=== PATIENT | female | born 1965 | race Caucasian/White ===

== ENCOUNTER 2017-08-03 07:19 | Outpatient (CLI) | payer OTHER ==
[~2017-08-03 07:19] MED LIST: ALBUTEROL2.5 MG/3 M IH; Atarax PO; BENADRYL50 MG PO; CLEOCIN HCL300 MG PO; FLONASE16 GM NASAL; FLONASE16 GM NS; GILTUSS TR TAB1 EACH PO; LEVOTHYROXINE PO; LIPITOR20 MG; LISINOPRIL10 MG; LISINOPRIL10 MG PO; MEDROL4 MG PO; PLAVIX75 MG; PROVENTIL HFA6.7 GM IH; PROVENTIL3 ML/2.5 M IH; Proventil 0.083% 2.5MG/3ML AMPUL.NEB. IH; SINGULAIR10 MG PO; SYNTHROID 25 MCG PO; TAGAMET800 MG PO; ULTRACET PO; ZESTRIL10 M1 PO; ZITHROMAX500 MG PO; ZOCOR20 MG PO; ZYRTEC10 MG PO; Zestril PO; Zyrtec 5mg/5ml PO
== END 2017-08-03 07:24 | disposition home or self-care (01) ==
LOC: LAB 07:19
DX: N92.0 Excessive and frequent menstruation with regular cycle (principal); N91.4 Secondary oligomenorrhea

== ENCOUNTER → 2017-10-15 | Outpatient (CLI) | payer OTHER | END | disposition home or self-care (01) | LOC: PPHC 15:50 | DX: Z76.0 Encounter for issue of repeat prescription (principal); Z00.8 Encounter for other general examination; Z00.00 Encounter for general adult medical examination without abnormal findings ==

== ENCOUNTER → 2017-10-20 06:53 | Outpatient (CLI) | payer OTHER | END | disposition home or self-care (01) | LOC: LAB 06:53 | DX: I10 Essential (primary) hypertension (principal); E78.5 Hyperlipidemia, unspecified; E03.9 Hypothyroidism, unspecified ==

== ENCOUNTER → 2017-11-09 | Outpatient (CLI) | payer OTHER | END | disposition home or self-care (01) | LOC: PPHC 15:40 | DX: Z00.8 Encounter for other general examination (principal) ==

== ENCOUNTER 2018-01-17 07:10 | Outpatient (CLI) | payer OTHER | END 2018-01-17 07:19 | disposition home or self-care (01) | LOC: LAB 07:10 | DX: E89.0 Postprocedural hypothyroidism (principal) ==

== ENCOUNTER 2018-02-23 10:07 | Outpatient (CLI) | payer OTHER | END 2018-02-23 10:10 | disposition home or self-care (01) | LOC: LAB 10:07 | DX: Z11.3 Encounter for screening for infections with a predominantly sexual mode of transmission (principal) ==

== ENCOUNTER → 2018-05-20 07:12 | Outpatient (CLI) | payer OTHER | END | disposition home or self-care (01) | LOC: LAB 07:12 | DX: E11.65 Type 2 diabetes mellitus with hyperglycemia (principal); E78.2 Mixed hyperlipidemia; E89.0 Postprocedural hypothyroidism ==

== ENCOUNTER 2018-06-29 12:01 | Emergency (ER) | payer OTHER ==
[~2018-06-29] VITALS: Ht 154.9 cm; Wt 68.0 kg
== END 2018-06-29 16:16 | disposition home or self-care (01) ==
LOC: ER 12:01
DX: R51 Headache (principal); R42 Dizziness and giddiness

== ENCOUNTER 2018-12-13 07:25 | Outpatient (CLI) | payer OTHER | END 2018-12-13 09:40 | disposition home or self-care (01) | LOC: LAB 07:25 | DX: E03.8 Other specified hypothyroidism (principal); R42 Dizziness and giddiness; I10 Essential (primary) hypertension; E78.49 Other hyperlipidemia ==

== ENCOUNTER 2019-02-23 12:11 | Outpatient (CLI) | payer OTHER | END 2019-02-23 14:50 | disposition home or self-care (01) | LOC: MAMO-SONO 12:11 | DX: N60.12 Diffuse cystic mastopathy of left breast (principal); N60.11 Diffuse cystic mastopathy of right breast ==

== ENCOUNTER 2019-03-08 11:29 | Outpatient (CLI) | payer OTHER | END 2019-03-08 11:35 | disposition home or self-care (01) | LOC: LAB 11:29 | DX: J11.1 Influenza due to unidentified influenza virus with other respiratory manifestations (principal); J11.81 Influenza due to unidentified influenza virus with encephalopathy ==

== ENCOUNTER 2019-03-31 07:05 | Outpatient (CLI) | payer OTHER | END 2019-03-31 07:10 | disposition home or self-care (01) | LOC: LAB 07:05 | DX: E78.49 Other hyperlipidemia (principal); N39.0 Urinary tract infection, site not specified ==

== ENCOUNTER → 2019-04-28 07:22 | Outpatient (CLI) | payer OTHER | END | disposition home or self-care (01) | LOC: LAB 07:22 | DX: M35.00 Sjogren syndrome, unspecified (principal) ==

== ENCOUNTER 2019-05-04 14:32 | Outpatient (CLI) | payer OTHER | END 2019-05-04 14:38 | disposition home or self-care (01) | LOC: LAB 14:32 | DX: R05 Cough (principal); J11.1 Influenza due to unidentified influenza virus with other respiratory manifestations ==

== ENCOUNTER 2019-05-17 12:52 | Outpatient (CLI) | payer OTHER | END 2019-05-17 13:00 | disposition home or self-care (01) | LOC: SONOGRAMA 12:52 | DX: E03.8 Other specified hypothyroidism (principal) ==

== ENCOUNTER 2019-09-06 07:41 | Outpatient (CLI) | payer OTHER | END 2019-09-06 07:47 | disposition home or self-care (01) | LOC: LAB 07:41 | DX: M33.22 Polymyositis with myopathy (principal); M06.09 Rheumatoid arthritis without rheumatoid factor, multiple sites; R76.0 Raised antibody titer; R74.0 Nonspecific elevation of levels of transaminase and lactic acid dehydrogenase [LDH]; E78.49 Other hyperlipidemia ==

== ENCOUNTER 2019-09-25 08:00 | Outpatient (CLI) | payer OTHER | END 2019-09-25 09:20 | disposition home or self-care (01) | LOC: NUCLEAR 08:00 | DX: M46.1 Sacroiliitis, not elsewhere classified (principal); M06.4 Inflammatory polyarthropathy | CPT/HCPCS: 78315; A9503 ==

== ENCOUNTER 2019-09-30 11:17 | Outpatient (CLI) | payer OTHER | END 2019-09-30 11:31 | disposition home or self-care (01) | LOC: RAD 11:17 | DX: M15.8 Other polyosteoarthritis (principal) ==

== ENCOUNTER → 2019-11-09 13:12 | Outpatient (CLI) | payer OTHER | END | disposition home or self-care (01) | LOC: LAB 13:12 | DX: J11.1 Influenza due to unidentified influenza virus with other respiratory manifestations (principal) ==

== ENCOUNTER 2020-01-13 11:43 | Outpatient (CLI) | payer OTHER | END 2020-01-13 14:19 | disposition home or self-care (01) | LOC: LAB 11:43 | DX: M54.2 Cervicalgia (principal); M54.5 Low back pain; E55.9 Vitamin D deficiency, unspecified ==

== ENCOUNTER 2020-02-28 14:20 | Outpatient (CLI) | payer OTHER | END 2020-02-28 14:24 | disposition home or self-care (01) | LOC: CERTIFICAD 14:20 | PROVIDERS: ATTEND General Practice | DX: Z11.1 Encounter for screening for respiratory tuberculosis (principal) ==

== ENCOUNTER → 2020-05-18 08:17 | Outpatient (CLI) | payer OTHER | END | disposition home or self-care (01) | LOC: LAB 08:17 | DX: J45.30 Mild persistent asthma, uncomplicated (principal); J30.89 Other allergic rhinitis ==

== ENCOUNTER 2020-07-05 15:22 | Outpatient (CLI) | payer OTHER | END 2020-07-05 15:24 | disposition home or self-care (01) | LOC: SONOGRAMA 15:22 | PROVIDERS: ATTEND Obstetrics & Gynecology Gynecology | DX: Q51.818 Other congenital malformations of uterus (principal); R10.2 Pelvic and perineal pain; D25.9 Leiomyoma of uterus, unspecified ==

== ENCOUNTER 2020-07-09 07:07 | Outpatient (CLI) | payer OTHER | END 2020-07-09 07:28 | disposition home or self-care (01) | LOC: LAB 07:07 | PROVIDERS: ATTEND Internal Medicine | DX: E03.8 Other specified hypothyroidism (principal); E55.9 Vitamin D deficiency, unspecified; E11.65 Type 2 diabetes mellitus with hyperglycemia; E78.49 Other hyperlipidemia; I10 Essential (primary) hypertension; N39.0 Urinary tract infection, site not specified ==

== ENCOUNTER 2020-08-28 09:11 | Emergency (ER) | payer OTHER ==
[~2020-08-28] VITALS: Ht 160 cm; Wt 63.0 kg
[2020-08-28] MEDS ORDERED: GEMFIBROZIL600 MG (09:38)
[2020-08-28] MEDS ORDERED: MECLIZINE HCL25 MG PO (13:55)
== END 2020-08-28 14:05 | disposition home or self-care (01) ==
LOC: ER 09:11
DX: R42 Dizziness and giddiness (principal); Z03.818 Encounter for observation for suspected exposure to other biological agents ruled out

== ENCOUNTER 2020-09-26 07:44 | Outpatient (CLI) | payer OTHER | END 2020-09-26 07:51 | disposition home or self-care (01) | LOC: LAB 07:44 | PROVIDERS: ATTEND Internal Medicine | DX: E78.5 Hyperlipidemia, unspecified (principal); E03.8 Other specified hypothyroidism ==

== ENCOUNTER → 2020-09-26 | Outpatient (CLI) | payer OTHER ==
[~2020-09-26] MED LIST changes: +GEMFIBROZIL600 MG; +MECLIZINE HCL25 MG PO
== END | disposition home or self-care (01) ==
LOC: SONOGRAMA 15:12
PROVIDERS: ATTEND Internal Medicine
DX: E04.2 Nontoxic multinodular goiter (principal)

== ENCOUNTER 2020-11-19 07:45 | Outpatient (CLI) | payer OTHER | END 2020-11-19 08:11 | disposition home or self-care (01) | LOC: NUCLEAR 07:45 | PROVIDERS: ATTEND Internal Medicine Cardiovascular Disease | DX: I10 Essential (primary) hypertension (principal) ==

== ENCOUNTER → 2020-12-20 06:35 | Outpatient (CLI) | payer OTHER | END | disposition home or self-care (01) | LOC: LAB 06:35 | PROVIDERS: ATTEND Internal Medicine | DX: M05.79 Rheumatoid arthritis with rheumatoid factor of multiple sites without organ or systems involvement (principal); M32.19 Other organ or system involvement in systemic lupus erythematosus; E55.9 Vitamin D deficiency, unspecified; E11.65 Type 2 diabetes mellitus with hyperglycemia; E78.5 Hyperlipidemia, unspecified; I10 Essential (primary) hypertension; E03.8 Other specified hypothyroidism ==

== ENCOUNTER → 2021-02-19 06:43 | Outpatient (CLI) | payer OTHER | END | disposition home or self-care (01) | LOC: LAB 06:43 | DX: E78.49 Other hyperlipidemia (principal) ==

== ENCOUNTER → 2021-04-08 06:57 | Outpatient (CLI) | payer OTHER | END | disposition home or self-care (01) | LOC: LAB 06:57 | PROVIDERS: ATTEND Internal Medicine | DX: E03.8 Other specified hypothyroidism (principal); E11.65 Type 2 diabetes mellitus with hyperglycemia; I10 Essential (primary) hypertension ==

== ENCOUNTER 2021-04-29 13:49 | Outpatient (CLI) | payer OTHER | END 2021-04-29 13:54 | disposition home or self-care (01) | LOC: SONOGRAMA 13:49 → MAMO-SONO 14:15 | PROVIDERS: ATTEND Internal Medicine | DX: E04.2 Nontoxic multinodular goiter (principal) ==

== ENCOUNTER 2021-07-28 15:40 | Outpatient (CLI) | payer OTHER | END 2021-07-28 15:54 | disposition home or self-care (01) | LOC: LAB 15:40 | PROVIDERS: ATTEND Preventive Medicine Occupational Medicine | DX: U07.1 COVID-19 (principal) ==

== ENCOUNTER 2021-08-05 07:22 | Outpatient (CLI) | payer OTHER | END 2021-08-05 15:11 | disposition home or self-care (01) | LOC: LAB 07:22 | DX: E03.8 Other specified hypothyroidism (principal); E55.9 Vitamin D deficiency, unspecified; E11.65 Type 2 diabetes mellitus with hyperglycemia; I10 Essential (primary) hypertension ==

== ENCOUNTER 2021-08-08 09:00 | Outpatient (CLI) | payer OTHER | END 2021-08-08 09:15 | disposition home or self-care (01) | LOC: PPH VACUNA 09:00 | PROVIDERS: ATTEND Emergency Medicine Pediatric Emergency Medicine | DX: Z23 Encounter for immunization (principal) ==

== ENCOUNTER 2021-09-12 15:01 | Outpatient (CLI) | payer OTHER | END 2021-09-12 15:14 | disposition home or self-care (01) | LOC: RAD 15:01 | DX: J32.9 Chronic sinusitis, unspecified (principal) ==

== ENCOUNTER 2021-10-20 06:13 | Outpatient (CLI) | payer OTHER | END 2021-10-20 06:14 | disposition home or self-care (01) | LOC: LAB 06:13 | PROVIDERS: ATTEND Internal Medicine | DX: E11.65 Type 2 diabetes mellitus with hyperglycemia (principal); E78.5 Hyperlipidemia, unspecified; I10 Essential (primary) hypertension; E55.9 Vitamin D deficiency, unspecified; E03.8 Other specified hypothyroidism ==

== ENCOUNTER 2022-02-03 06:59 | Outpatient (CLI) | payer OTHER | END 2022-02-03 07:06 | disposition home or self-care (01) | LOC: LAB 06:59 | PROVIDERS: ATTEND Internal Medicine | DX: R73.09 Other abnormal glucose (principal); N39.0 Urinary tract infection, site not specified; E11.9 Type 2 diabetes mellitus without complications; E78.2 Mixed hyperlipidemia; E78.5 Hyperlipidemia, unspecified ==

== ENCOUNTER 2022-02-18 06:35 | Outpatient (CLI) | payer OTHER | END 2022-02-18 06:38 | disposition home or self-care (01) | LOC: LAB 06:35 | DX: N39.0 Urinary tract infection, site not specified (principal) ==